=== PATIENT | female | born 1985 | race Caucasian/White ===

== ENCOUNTER 2020-10-30 07:33 | Inpatient (IN) ==
[2020-10-30] MEDS ORDERED: OXYTOCIN 30 UNITS/500 ML BAG IV PRN ×3 (07:48→21:22)
[2020-10-30] MEDS ORDERED: PENICILLIN G POTASSIUM 6 MU in DEXTROSE 5% 250 ML IV STA (07:53)
[2020-10-30 08:43] LABS: Hemoglobin 11.3 g/dL (12.0-16.0); Mean Corpuscular Hemoglobin 30.8 pg (25-34); Mean Corpuscular Hgb Conc 33.2 g/dL (32-36); Mean Corpuscular Volume 92.6 fL (80-100); Mean Platelet Volume 11.2 fL (7.4-10.4); Platelet Count 232 K/uL (130-400); RDW Coefficient of Variation 14.2 % (11.5-14.5); RDW Standard Deviation 47.9 fL (36.4-46.3); Red Blood Count 3.67 M/uL (4.2-5.4); White Blood Count 15.33 K/uL (4.8-10.8)
[2020-10-30] MEDS: LACTATED RINGER'S 1,000 ML IV PRN ×3 (09:08→19:18)
--- NOTE | 2020-10-30 09:23 | History & Physical Report ---
Date of Service October 30, 2020 Assessment & Plan (1) Encounter for supervision of normal in multigravida: Plan: 34 y/o at 40 6/7 wga presents for IOL VSS Fetus cat 1 Labor - will start pit GBS +, pcn started epidural prn Admission and Anticipated Discharge Date Admission Date: October 30, 2020 History of Present Illness Chief Complaint: IOL Primary Care Provider: Kari Scott MD 34 y/o at 40 6/7 wga presents for post-edc IOL. +FM; denies regular ctx, LOF, VB PNI: GBS+ Past NEGATIVE CHECKER Hx: G1 2018 VAVD at 41 wks G2 current Menarche q28-40d cycles 01/2020 pap neg cotest Denies hx STIs Allergies Allergy/AdvReac Type Severity Reaction Status Date / Time No Known Allergies Allergy Verified 10/29/20 11:19 Home Medications Medication Instructions Recorded Confirmed Type cetirizine 10 mg tablet (Zyrtec) 10 mg PO DAILY 11/21/19 10/29/20 History melatonin 5 mg tablet 5 mg PO HS PRN 11/23/19 10/29/20 History prenat.vits,melissa,[id number] 1 tab PO DAILY 01/13/20 10/29/20 History famotidine 20 mg tablet 20 mg PO DAILY 03/23/20 10/29/20 History Patient History Surgical History (Updated 03/23/20 @ 13:29 by Carlota Hair RN) S/P wisdom tooth extraction Family History (Updated 03/23/20 @ 13:18 by Carlota Hair RN) Mother Kidney disease s/p LRRT due to ADPKD Grandmother (Paternal) Diabetes Social History (Updated 03/23/20 @ 13:19 by Carlota Hair, JORGE) Smoking Status: Never smoker Hx Alcohol Use: No Hx Substance Use: No Preferred Language: [place] Beliefs That Will Affect Care: None marital status: marital status details: Pavel (35) [phone] Current Living Situation: Spouse Current Living Situation Comment: lives with spouse, daughter, and parents. current occupational status: unemployed current occupation: PhD in [employer] How many Children do You have: 1 Other Information That Helps Us Care for You: No Feels Safe at Home: Yes Safety Concerns: Feels Safe At This Time Assistive Devices: None Physical Exam Constitutional: WD/WN, vitals as above Respiratory: normal respiratory effort; no respiratory distress and no labored breathing Psychiatric: A+Ox3, euthymic affect Genitourinary: OB Exam Abdomen: + estimated weight (7-8) Manual OB Exam: + cervical dilation 3 cm, + cervical effacement 50% and + station -2 OB Exam Monitor Tracing: + external FHT monitor used, + external uterine monitor used (irreg ctx) and + category I (130/mod/+accel/-decel) Results & Data ([facility]) Vital Signs (Past 12 Hours) Vital Signs Temp Pulse Resp BP 10/30/20 08:28 98.4 F 20 10/30/20 07:43 98.4 F 76 20 135/76 Laboratory Results OB Labs: Blood Type A Positive 04/20/20 Antibody Screen NEGATIVE 04/20/20 Hemoglobin 11.1 g/dL (12.0-16.0) L 08/03/20 Hematocrit 34.4 % (37-47) L 08/03/20 Mean Corpuscular Volume 88.7 fL (80-100) 04/20/20 Platelet Count 301 K/uL (130-400) 04/20/20 Rubella IgG Antibody Immune (Immune) 04/20/20 Rapid Plasma Reagin Nonreactive (Nonreactive) 04/20/20 Hepatitis B Surface Antigen Neg (Neg) 04/20/20 HIV (1&2) Ab and P24 Ag, 4th Gener Neg (Neg) 04/20/20 Glucose 1 Hour 50 gm Load 125 mg/dl (70-130) 08/03/20 OB Optional Labs: Chlamydia trachomatis RNA NOT DETECTED (NOT DETECTED) 04/20/20 Neisseria gonorrhoeae RNA NOT DETECTED (NOT DETECTED) 04/20/20 Labs Reviewed: cfdna low risk - sln decline afp - sln GBS+ Coding Level of Care Code None Diagnoses Encounter for supervision of normal in multigravida Z34.80
[2020-10-30] MEDS: PENICILLIN G POTASSIUM 3 MU in DEXTROSE 5% 100 ML IV PRN ×3 (13:05→20:02)
--- NOTE | 2020-10-30 15:53 | Labor Progress Brief Note ---
Date of Service October 30, 2020 Subjective Reason For Note: Routine Evaluation Assessment & Plan (1) Encounter for supervision of normal in multigravida: Plan: Progressing, AROM clr, Cat 1 (2) Group B streptococcal infection during : Admission and Anticipated Discharge Date Admission Date: October 30, 2020 Physical Exam Constitutional: WD/WN, vitals as above Genitourinary: OB Exam Abdomen: + vertex Manual OB Exam: + cervical dilation 4 cm, + cervical effacement 60%, + station -2 and + amniotic fluid clear OB Exam Monitor Tracing: + external FHT monitor used, + external uterine monitor used, + category I and + normal FHT variability; no category II, no early decelerations present, no late decelerations present and no variable decelerations Results & Data ([facility]) Vital Signs (Past 12 Hours) Vital Signs Temp Pulse Resp BP 10/30/20 15:29 36.8 C 62 20 113/71 10/30/20 14:06 58 L 117/69 10/30/20 08:28 36.9 C 20 10/30/20 07:43 36.9 C 76 20 135/76 Coding Level of Care Code None Diagnoses Encounter for supervision of normal in multigravida Z34.80 Group B streptococcal infection during O98.819; B95.1
[2020-10-30] MEDS ORDERED: BUPIVACAINE 0.25% 30 ML VIAL ONE (17:33)
[2020-10-30] MEDS ORDERED: ePHEDrine sulfate 50 MG/ML AMP ONE (17:33)
[2020-10-30] MEDS ORDERED: SODIUM CHLORIDE 0.9% INJ 10 ML VIAL ONE (17:33)
[2020-10-30] MEDS ORDERED: fentaNYL 2MCG/ML ROPIVACAINE 1.25MG/ML 100 ML BAG EPI ONE (17:34)
[2020-10-30] MEDS ORDERED: fentaNYL citrate 100 MCG/2 ML VIAL ONE (17:34)
--- NOTE | 2020-10-30 17:52 | Anesthesiology Consultation ---
Date of Service October 30, 2020 Assessment & Plan Chart Review Chart Review: Acceptable Risk for Surgery, Patient NOT seen in Pre Admission Testing and Acceptable Risk for Labor Epidural Consults Requested none ASA ASA2 Proposed Anesthesia Anesthesia Type: Labor Epidural and CSE History Height/Weight Height: 5 ft 4 in Weight: 77.111 kg Allergies Allergy/AdvReac Type Severity Reaction Status Date / Time No Known Allergies Allergy Verified 10/29/20 11:19 Medications Home Medications Medication Instructions Recorded Confirmed Last Taken cetirizine 10 mg tablet (Zyrtec) 10 mg PO DAILY 11/21/19 10/30/20 10/30/20 06:00 melatonin 5 mg tablet 5 mg PO HS PRN 11/23/19 10/30/20 10/29/20 22:00 famotidine 20 mg tablet 20 mg PO DAILY 03/23/20 10/30/20 10/29/20 22:00 prenat.vits,melissa,ato-[id number] 1 tab PO DAILY 10/30/20 10/30/20 10/29/20 20:00 Active Medications Generic Name Dose Route Start Last Admin Trade Name Freq PRN Reason Stop Dose Admin Penicillin G Potassium 3 mu/ 106 mls @ 100 mls/hr 10/30/20 07:48 10/30/20 16:50 Dextrose IV 11/09/20 07:47 106 mls/hr Q4H PRN Administration Give until delivery Oxytocin 30 units in 500 mls @ 16 mls/hr 10/30/20 07:48 10/30/20 15:30 Pitocin IV 11/01/20 07:47 0.96 units/hr .Q24H PRN 16 mls/hr Labor Induction/Augmentation Titration Protocol 0.96 UNITS/HR Lactated Ringer's 1,000 mls @ 125 mls/hr 10/30/20 07:48 10/30/20 17:27 Lr IV 11/01/20 07:47 999 mls/hr .Q8H PRN Infusion L&D Protocol Protocol Exercise / Class Metabolic Activity II 4-5 Yardwork/Stairs/Walk up hill Past Family History Family History Mother Kidney disease s/p LRRT due to ADPKD Grandmother (Paternal) Diabetes Past Surgical History Surgical History S/P wisdom tooth extraction Past Anesthesia History No Hx of Anesthesia Complications and No Family Hx of Anesthesia Complications History of PONV No Hx of PONV and No Hx of Motion Sickness Social History Smoking Status: Never smoker Hx Alcohol Use: No Hx Substance Use: No substance use type: does not use Physical Exam Vital Signs Last Vital Signs Temp 36.8 C 10/30/20 15:29 Pulse 63 10/30/20 17:04 Resp 20 10/30/20 15:29 BP 116/74 10/30/20 17:04 Testing Laboratory Results 10/30/20 08:20
--- NOTE | 2020-10-30 18:05 | Anesthesiology Consultation ---
Date of Service October 30, 2020 Assessment & Plan Chart Review Chart Review: Acceptable Risk for Surgery, Patient NOT seen in Pre Admission Testing and Acceptable Risk for Labor Epidural Consults Requested none ASA ASA2 Proposed Anesthesia Anesthesia Type: Labor Epidural and CSE Risk / Benefits Reviewed With: PT / POA / Parent / Guardian, Accepts Plan and Informed Consent Obtained Additional Comments: covid test negative History Height/Weight Height: 5 ft 4 in Weight: 77.111 kg Allergies Allergy/AdvReac Type Severity Reaction Status Date / Time No Known Allergies Allergy Verified 10/29/20 11:19 Medications Home Medications Medication Instructions Recorded Confirmed Last Taken cetirizine 10 mg tablet (Zyrtec) 10 mg PO DAILY 11/21/19 10/30/20 10/30/20 06:00 melatonin 5 mg tablet 5 mg PO HS PRN 11/23/19 10/30/20 10/29/20 22:00 famotidine 20 mg tablet 20 mg PO DAILY 03/23/20 10/30/20 10/29/20 22:00 prenat.vits,melissa,ijx-kvfu-[id number] 1 tab PO DAILY 10/30/20 10/30/20 10/29/20 20:00 Active Medications Generic Name Dose Route Start Last Admin Trade Name Freq PRN Reason Stop Dose Admin Penicillin G Potassium 3 mu/ 106 mls @ 100 mls/hr 10/30/20 07:48 10/30/20 16:50 Dextrose IV 11/09/20 07:47 106 mls/hr Q4H PRN Administration Give until delivery Oxytocin 30 units in 500 mls @ 16 mls/hr 10/30/20 07:48 10/30/20 15:30 Pitocin IV 11/01/20 07:47 0.96 units/hr .Q24H PRN 16 mls/hr Labor Induction/Augmentation Titration Protocol 0.96 UNITS/HR Lactated Ringer's 1,000 mls @ 125 mls/hr 10/30/20 07:48 10/30/20 17:27 Lr IV 11/01/20 07:47 999 mls/hr .Q8H PRN Infusion L&D Protocol Protocol NPO Date Last Intake of Fluids: 10/30/20 Time Last Intake of Fluids: 17:00 Date Last Intake of Solids: 10/30/20 Time Last Intake of Solids: 07:00 Exercise / Class Metabolic Activity II 4-5 Yardwork/Stairs/Walk up hill Past Family History Family History Mother Kidney disease s/p LRRT due to ADPKD Grandmother (Paternal) Diabetes Past Surgical History Surgical History S/P wisdom tooth extraction Past Anesthesia History No Hx of Anesthesia Complications and No Family Hx of Anesthesia Complications History of PONV No Hx of PONV and No Hx of Motion Sickness Social History Smoking Status: Never smoker Hx Alcohol Use: No Hx Substance Use: No substance use type: does not use Physical Exam Vital Signs Last Vital Signs Temp 36.8 C 10/30/20 17:53 Pulse 74 10/30/20 17:53 Resp 22 10/30/20 17:53 BP 126/69 10/30/20 17:53 Constitutional + obese ENMT Mouth: no dentition abnormality Thyromental Distance: < 3.5 Finger Breadths Mallampati Class: II Neck normal visual inspection and trachea midline Respiratory normal respiratory effort Auscultation: lungs clear to auscultation bilaterally Cardiovascular Rate/Rhythm: regular rate and regular rhythm Heart Sounds: no murmur Vessels: no carotid bruit Musculoskeletal Spine: lumbar spine normal to inspection; normal cervical ROM Neurologic moves all extremities Motor/Sensory: no sensory deficit Psychiatric Orientation: alert and oriented x 3 Testing Laboratory Results 10/30/20 08:20
[2020-10-30] MEDS ORDERED: LIDOCAINE 1% LOCAL 20 ML VIAL ONE (18:21)
[2020-10-30] MEDS ORDERED: ONDANSETRON INJ 2 MG/ML 2 ML VIAL IV PRN (18:33)
[2020-10-30] MEDS ORDERED: diphenhydrAMINE 50 MG/ML VIAL IV PRN (18:33)
[2020-10-30] MEDS ORDERED: NALBUPHINE HCL INJ 10 MG/ML AMP IV PRN (18:33)
[2020-10-30] MEDS ORDERED: PROMETHAZINE HCL 25 MG in SODIUM CHLORIDE 0.9% 50 ML IV PRN (18:33)
[2020-10-30] MEDS ORDERED: NALOXONE HCL 0.4 MG/1 ML VIAL/CARP IV PRN (18:33)
[2020-10-30] MEDS ORDERED: fentaNYL 2MCG/ML ROPIVACAINE 1.25MG/ML 100 ML BAG EPI PRN (18:33)
[2020-10-30] MEDS ORDERED: NALOXONE HCL 1 MG in SODIUM CHLORIDE 0.9% 1000ML 1,000 ML IV PRN (18:33)
[2020-10-30] MEDS ORDERED: ePHEDrine sulfate 50 MG/ML AMP IV PRN (18:33)
[2020-10-30] MEDS ORDERED: bisacodyL 10 MG SUPP PR PRN (21:22)
[2020-10-30] MEDS ORDERED: SUPERCREAM 0.870% 15 GM JAR EXT PRN (21:22)
[2020-10-30] MEDS ORDERED: BENZOCAINE 20% AER SPR 82.5 GM CAN EXT PRN (21:22)
[2020-10-30] MEDS ORDERED: DIPHTHERIA/TETANUS/PERTUSSIS 0.5 ML SYR/VIAL IM ONE (21:22)
[2020-10-30] MEDS ORDERED: ACETAMINOPHEN 325 MG TAB PO PRN (21:22)
[2020-10-30] MEDS ORDERED: HYDROCORTISONE ACETATE 25 MG SUPP PR PRN (21:22)
--- NOTE | 2020-10-30 21:51 | Anesthesia Procedure Note ---
Date of Service October 30, 2020 Anesthesia Post Epidural Note Vital Signs Vital Signs: Temp Pulse Resp BP 36.8 C 88 18 130/63 10/30/20 19:02 10/30/20 21:50 10/30/20 21:35 10/30/20 21:50 Pain Intensity Abdomen: Pain Intensity: 0 Notes Mental Status: alert / awake / arousable Nausea / Vomiting: adequately controlled Pain: adequately controlled Airway Patency, RR, SpO2: stable & adequate BP & HR: stable & adequate Hydration State: stable & adequate Neuraxial Anesthesia: was administered and sensory block is resolving Anesthetic Complications: no major complications apparent Epidural: Removed without complications and With tip intact
--- NOTE | 2020-10-31 07:04 | Obstetrical Progress Note ---
Date of Service <Tacos Manjarrez DO - Last Filed: 10/31/20 08:13> October 31, 2020 Assessment & Plan <Tacos Manjarrez DO - Last Filed: 10/31/20 08:13> (1) Encounter for care and examination after delivery: s/p vaginal delivery PPD1 - A+, GBS+, RI. - Vitals WNL. - Encouraged . - Patient with complaint of incomplete urination. Bladder scan revealed more than 1300cc's of urine. Explained to the patient the need for a Hernandez and patient was agreeable. Placed Hernandez catheter back in, will stay until tomorrow morning. - Will continue to monitor. <Easton Cruz MD - Last Filed: 11/01/20 10:32> (1) Encounter for care and examination after delivery: Subjective <Tacos Manjarrez DO - Last Filed: 10/31/20 08:13> Ambulation: ambulating normally Voiding: no voiding problems and voiding difficulty (Patient feels like incompletely drains bladder when micturates. ) Passing Gas:: Yes Diet Tolerance:: regular diet Lochia:: Small Feeding Type:: breast feeding Current Pain Level(1-10): 0 Review of Systems Denies fever, chills, sweats Denies shortness of breath, difficulty breathing, chest pain, palpitations, chest pressure. Denies breast pain. Incomplete urination. Denies headache or changes in vision Physical Exam <Tacos Manjarrez DO - Last Filed: 10/31/20 08:13> General: Alert, oriented. No acute distress. Cardiac: Regular rate and rhythm, no murmurs/rubs/gallops. Respiratory: Clear to auscultation bilaterally a/p, no wheezes/rales/rhonchi. No increased work of breathing. Symmetrical chest rise. No respiratory distress. Abdomen: Soft, nontender, nondistended. Bowel sounds present. Uterus: Uterine fundus firm, palpable at umbilicus. Lower Extremities: No lower extremity edema or swelling. No deep calf pain. Kristina's negative bilaterally Results & Data ([facility]) <Tacos Manjarrez DO - Last Filed: 10/31/20 08:13> Vital Signs (Past 12 Hours) Vital Signs Temp Pulse Pulse Resp BP BP 10/31/20 04:50 36.8 C 75 18 119/73 10/31/20 00:05 36.6 C 80 18 102/63 10/30/20 23:22 75 115/58 L 10/30/20 23:20 37.0 C 18 10/30/20 22:50 87 18 149/67 H 10/30/20 22:35 78 102/56 L 10/30/20 22:20 75 18 117/55 L 10/30/20 22:05 74 16 123/57 L 10/30/20 21:50 88 16 130/63 10/30/20 21:35 85 18 116/69 10/30/20 21:20 82 18 117/58 L 10/30/20 20:58 80 106/55 L 10/30/20 20:45 88 115/61 10/30/20 20:28 91 H 101/51 L 10/30/20 20:14 82 114/61 10/30/20 19:58 80 112/60 10/30/20 19:44 78 111/55 L 10/30/20 19:31 86 184/71 H <Easton Cruz MD - Last Filed: 11/01/20 10:32> Co-Signing Physician Notes Patient seen and evaluated and agree with the above findings and plan. Hernandez cath placed for urinary retention. Will plan to keep until tomorrow am. Resident Activity Tracking <Tacos Manjarrez DO - Last Filed: 10/31/20 08:13> Resident Involvement: Resident Care Provided Care Provided: OB Delivery
[2020-10-31] MEDS: IBUPROFEN 600 MG TAB PO PRN ×3 (07:12→20:22)
[2020-10-31] MEDS: PRENATAL VITAMIN 1 TAB PO SCH (07:49)
[2020-10-31] MEDS: DOCUSATE SODIUM 100 MG CAP PO SCH ×2 (07:49→20:22)
[2020-10-31] MEDS: FERROUS SULFATE 325 MG TAB PO SCH (07:49)
--- NOTE | 2020-10-31 08:00 | Delivery Summary ---
DATE OF PROCEDURE: 10/30/2020. PROCEDURE: Normal spontaneous vaginal delivery. SURGEON: Easton Cruz MD PREOPERATIVE DIAGNOSES: 1. Single intrauterine at 40 weeks 6 days gestational age. 2. GBS positive. POSTOPERATIVE DIAGNOSES: 1. Single intrauterine at 40 weeks 6 days gestational age. 2. GBS positive. 3. Status post delivery. ESTIMATED BLOOD LOSS: 200 mL. DRAINS: None. FLUIDS: Continuous lactated Ringer. URINE OUTPUT: Not measured. COMPLICATIONS: None. FINDINGS: Viable female with weight pending and Apgars of 8 and 9 at 1 and 5 minutes respecti vely. INDICATIONS FOR PROCEDURE: Nargis is a 34-year-old G2, P1, admitted at 40 weeks 6 days gestational ag e for induction of labor. The patient was started on oxytocin per regular protocol. She slowly prog ressed to 4 cm, at which time she underwent artificial rupture of membranes for clear fluid. She pro gressed quickly and did receive an epidural for anesthesia and pushed for under an hour to achieve de livery. DESCRIPTION OF PROCEDURE: The patient progressed to 10 cm dilated, 100% effaced, positive 1 station, pushed over intact perineum with epidural anesthesia and delivered a viable female with weigh t and Apgars as noted above. Head of the delivered in JARON position, rest into right transver se. No nuchal cord was noted. Body and shoulders quickly followed. was noted to be vigorou s upon delivery and a 1-minute delayed cord clamping was initiated. Cord was then doubly clamped and cut. remained on maternal abdomen and continued to be vigorous. Cord blood was obtained. Attention was then turned to delivery of the placenta, which was delivered intact, 3-vessel cord, gen tle cord traction. On inspection of the perineum, vagina, and cervix, there were noted to be no lace rations. Sponge and instrument counts were correct at the completion of the case. Both mother and n eonate were stable in the immediate post-delivery period. Job ID: [id number]
[2020-10-31 15:16] VITALS: O2SAT 98
[2020-10-31] MEDS ORDERED: bisacodyL 5 MG TABEC PO SCH (20:00)
--- NOTE | 2020-11-01 06:20 | Obstetrical Progress Note ---
Date of Service <Tacos Manjarrez DO - Last Filed: 11/01/20 07:25> November 01, 2020 Assessment & Plan <Tacos Manjarrez DO - Last Filed: 11/01/20 07:25> (1) Encounter for care and examination after delivery: s/p vaginal delivery PPD2 - A+, GBS+, RI. - Vitals WNL. - Encouraged . - Patient with complaint of incomplete urination. Bladder scan yesterday revealed more than 1300cc's of urine. Nichols catheter in place, will remove this morning and see how patient does with voiding. - If patient able to void multiple times, can send home today when patient is ready. <Areli Palma MD, FACOG - Last Filed: 11/01/20 07:32> (1) Encounter for care and examination after delivery: Subjective <Tacos Manjarrez DO - Last Filed: 11/01/20 07:25> Ambulation: ambulating normally Voiding: nichols catheter in place Passing Gas:: Yes Diet Tolerance:: regular diet Lochia:: Small Feeding Type:: breast feeding Current Pain Level(1-10): 0 Review of Systems Denies fever, chills, sweats Denies shortness of breath, difficulty breathing, chest pain, palpitations, chest pressure. Denies breast pain. Denies headache or changes in vision Physical Exam <Tacos Manjarrez DO - Last Filed: 11/01/20 07:25> General: Alert, oriented. No acute distress. Cardiac: Regular rate and rhythm, no murmurs/rubs/gallops. Respiratory: Clear to auscultation bilaterally a/p, no wheezes/rales/rhonchi. No increased work of breathing. Symmetrical chest rise. No respiratory distress. Abdomen: Soft, nontender, nondistended. Bowel sounds present. Uterus: Uterine fundus firm, palpable at umbilicus. Lower Extremities: No lower extremity edema or swelling. No deep calf pain. Kristina's negative bilaterally Results & Data ([facility]) <Tacos Manjarrez DO - Last Filed: 11/01/20 07:25> Vital Signs (Past 12 Hours) Vital Signs Temp Pulse Resp BP Pulse Ox 10/31/20 23:45 36.9 C 67 18 108/67 98 10/31/20 20:20 36.7 C 77 18 126/75 <Areli Palma MD, FACOG - Last Filed: 11/01/20 07:32> Co-Signing Physician Notes Resident Physician Supervision Note: I was present with Dr. Manjarrez during the history and exam. I discussed the case with the resident and agree with the findings and plan as documented in the note. Any exceptions or clarifications are listed here: Doing well. Plan to d/c nichols this am. If voids, plan d/c later today. If unable to empty bladder , may need to go home with a nichols. Doing well PP and meeting goals. Documented By: Areli Palma MD, FACOG Resident Activity Tracking <Tacos Manjarrez DO - Last Filed: 11/01/20 07:25> Resident Involvement: Resident Care Provided Care Provided: OB Delivery
[2020-11-01 08:23] VITALS: BP 128/74; PULSE 71; TEMP 97.9
[2020-11-01] MEDS: IBUPROFEN 600 MG TAB PO PRN ×2 (08:37→12:21)
[2020-11-01] MEDS: PRENATAL VITAMIN 1 TAB PO SCH (08:37)
[2020-11-01] MEDS: DOCUSATE SODIUM 100 MG CAP PO SCH (08:37)
[2020-11-01] MEDS: FERROUS SULFATE 325 MG TAB PO SCH (08:37)
== END 2020-11-01 14:09 | disposition home or self-care (01) | DRG 807 ==
LOC: 4S1 07:33 → 4S2 23:45